=== PATIENT | female | born 1965 | race Asian ===

== ENCOUNTER → 2018-03-11 | Outpatient (CLI) | payer OTHER ==
[~2018-03-11] MED LIST: MULTI VITAMINS1 TAB PO; VITAMIN C500 MG PO
== END ==
LOC: MC.RAD 01-29 11:20
DX: Z12.31 Encounter for screening mammogram for malignant neoplasm of breast (principal)

== ENCOUNTER 2018-03-20 09:01 | Day surgery (SDC) | payer OTHER ==
[~2018-03-20] VITALS: Ht 154.9 cm; Wt 59.5 kg
[2018-03-20] MEDS ORDERED: PRILOSEC 20MG20 MG PO (09:14)
[2018-03-20 09:38] VITALS: BP 109/87; PULSE 76; TEMP 98.1
[2018-03-20 10:45] VITALS: BP 146/86; PULSE 69; TEMP 97.7
[2018-03-20 11:00] VITALS: BP 140/67; PULSE 62
[2018-03-20 11:15] VITALS: BP 117/74; PULSE 62
[2018-03-20 11:30] VITALS: BP 120/89; PULSE 67
== END 2018-03-20 11:30 | disposition home or self-care (01) ==
LOC: SDCO 09:01
DX: Z12.11 Encounter for screening for malignant neoplasm of colon (principal); Z86.010 Personal history of colon polyps; Z80.0 Family history of malignant neoplasm of digestive organs; K57.30 Diverticulosis of large intestine without perforation or abscess without bleeding; K21.9 Gastro-esophageal reflux disease without esophagitis; K44.9 Diaphragmatic hernia without obstruction or gangrene; K21.0 Gastro-esophageal reflux disease with esophagitis; R13.10 Dysphagia, unspecified
CPT/HCPCS: J2405; J2704; J7120

== ENCOUNTER → 2018-03-27 | Outpatient (CLI) | payer OTHER ==
[~2018-03-27] MED LIST changes: +PRILOSEC 20MG20 MG PO
== END ==
LOC: COL.RAD 07:17
DX: G43.109 Migraine with aura, not intractable, without status migrainosus (principal); D86.3 Sarcoidosis of skin
CPT/HCPCS: A9585

== ENCOUNTER → 2019-08-17 | Outpatient (CLI) | payer BC | LOC: MC.RAD 13:52 | DX: Z12.31 Encounter for screening mammogram for malignant neoplasm of breast (principal) ==

== ENCOUNTER → 2020-10-04 | Outpatient (CLI) | payer BC | LOC: MC.RAD 14:15 | DX: Z12.31 Encounter for screening mammogram for malignant neoplasm of breast (principal) ==

== ENCOUNTER → 2021-10-22 | Outpatient (CLI) | payer BC | LOC: MC.RAD 13:02 | DX: Z12.31 Encounter for screening mammogram for malignant neoplasm of breast (principal) ==